=== PATIENT | male | born 1970 | race Caucasian/White ===

== ENCOUNTER 2017-09-02 09:07 | Day surgery (SDC) | payer BC ==
[~2017-09-02] VITALS: Ht 170.2 cm; Wt 110.9 kg
[~2017-09-02 09:07] MED LIST: SUBOXONE 2 MG-1 EACH SL
[2017-09-02 10:22] VITALS: BP 131/91
[2017-09-02] MEDS ORDERED: MOTRIN600 MG PO (13:44)
[2017-09-02] MEDS ORDERED: NORCO 5/3251 TABLET PO (13:44)
[2017-09-02 14:32] VITALS: BP 112/69
[2017-09-02 15:29] VITALS: BP 123/79
== END 2017-09-02 15:49 | disposition home or self-care (01) ==
LOC: SDC 09:07
PROC: 0WUF4JZ Supplement Abdominal Wall with Synthetic Substitute, Percutaneous Endoscopic Approach (ICD-10-PCS; principal; 2017-09-02)
DX: K43.0 Incisional hernia with obstruction, without gangrene (principal); K66.0 Peritoneal adhesions (postprocedural) (postinfection); F17.200 Nicotine dependence, unspecified, uncomplicated; F11.20 Opioid dependence, uncomplicated; Z83.3 Family history of diabetes mellitus; Z91.030 Bee allergy status
CPT/HCPCS: C1781; J0131; J0330; J0690; J1100; J1170; J1885; J2250; J2405; J2710; J3010; S0020